=== PATIENT | male | born 1960 | race Caucasian/White ===

== ENCOUNTER → 2020-06-14 11:07 | Outpatient (CLI) | payer OTHER, SELFPAY ==
[2020-06-14] MEDS: COVID-19 VACC #1, MRNA(MOD) 100 MCG/0.5 ML VIAL IM (11:17)
== END ==
PROVIDERS: Visit Provider Internal Medicine
DX: Z23 Encounter for immunization (principal)
CPT/HCPCS: 0011A; 91301

== ENCOUNTER → 2020-07-13 10:46 | Outpatient (CLI) | payer OTHER, SELFPAY ==
[2020-07-13] MEDS: COVID-19 VACC #2, MRNA(MOD) 100 MCG/0.5 ML VIAL IM (10:53)
== END ==
PROVIDERS: Visit Provider Internal Medicine
DX: Z23 Encounter for immunization (principal)
CPT/HCPCS: 0012A; 91301

== ENCOUNTER → 2021-09-01 15:15 | Outpatient (CLI) | payer OTHER, SELFPAY ==
[2021-09-01 16:48] LABS: Appearance Urine UA CLEAR; Bilirubin Urine UA NEGATIVE (NEGATIVE); Color Urine UA YELLOW; Glucose Urine UA 1+ g/dL (Negative); Ketones Urine UA TRACE (NEGATIVE); Leukocyte Esterase Urine UA NEGATIVE (NEGATIVE); Nitrite Urine UA NEGATIVE (Negative); Occult Blood Urine UA 2+ (Negative); Protein Urine UA TRACE (Negative); Specific Gravity Urine UA 1.015 (1.000-1.035); Urobilinogen Urine UA 0.2 E.U./dL (0.2)
[2021-09-01 16:59] LABS: Bacteria Urine None Seen; Culture Indicated Urine Cult Not Indicated; RBC Urine 5-10/HPF (0-5/HPF); Squamous Epithelial Cell Urine 0-1 /HPF (0-5/HPF); WBC Urine 0-1/HPF (0-5/HPF)
== END ==
PROVIDERS: Referring Provider Urology; Visit Provider Urology
DX: N39.0 Urinary tract infection, site not specified (principal)
CPT/HCPCS: 81001

== ENCOUNTER 2021-09-01 20:07 | Inpatient (IN) | payer OTHER, SELFPAY ==
[2021-09-01] VITALS (7 sets, daily range): BP systolic 106–150; BP diastolic 73–82; PULSE 109–128; RESP 18–33; TEMP 37.3–39.8; O2SAT 95–99; BMI 25.5
[2021-09-01 20:44] LABS: Add Manual Diff / Slide Review NO; Basophils Absolute Auto 0 /uL (0-100); Basophils Percent Auto 0.3 % (0-2); Eosinophils Absolute Auto 0 /uL (0-450); Eosinophils Percent Auto 0.1 % (2-4); Hematocrit 37.5 % (41-53); Hemoglobin 12.9 g/dL (13.5-17.5); Lymphocytes Absolute Auto 700 /uL (1100-4500); Lymphocytes Percent Auto 9.2 % (25-40); Mean Corpuscular HGB Conc 34.3 % (30-36); Mean Corpuscular Hemoglobin 30.7 PG (26-34); Mean Corpuscular Volume 89.5 fL (80-100); Monocytes Absolute Auto 100 /uL (0-900); Monocytes Percent Auto 1.2 % (3-14); Neutrophils Absolute Auto 7200 /uL (1500-7000); Neutrophils Percent Auto 89.2 % (50-75); Platelet Count 157 X10^3/uL (150-400); Red Blood Cell Count 4.19 X10^6/uL (4.5-5.9); Red Cell Distribution Width 12.9 % (11.6-14.8); White Blood Cell Count 8.1 X10^3/uL (4.5-11.0)
--- NOTE | 2021-09-01 20:54 | PC.NURSE ---
Pt symptoms resolved during triage and initial assessment, pt called RN room r/t chills and body shaking, aaox3/3 and following commands, warm blanket provided.
[2021-09-01 20:57] LABS: BUN Creatinine Ratio 8.3 (6-22); Blood Urea Nitrogen 10 mg/dL (9-20); Calcium 9.4 mg/dL (8.4-10.2); Carbon Dioxide 20 mmol/L (22-32); Chloride 98 mmol/L (98-107); Estimated Glomerular Filt Rate > 60 mL/min (>60); Glucose 114 mg/dL (80-110); HEMOLYSIS < 15 (0-50); Potassium 3.7 mmol/L (3.4-5.1); Sodium 135 mmol/L (137-145)
[2021-09-01 20:58] LABS: Lactate (Lactic Acid) 3.2 mmol/L (0.7-2.1)
[2021-09-01 21:14] LABS: Procalcitonin 0.95 ng/mL (<0.5)
[2021-09-01] MEDS: SODIUM CHLORIDE 0.9% 1,000 ML 1000 ML IV (21:22)
--- NOTE | 2021-09-01 21:30 | DI.RAD.S_ITS ---
PROCEDURE: XR CHEST 1V INDICATIONS: eval for PNA TECHNIQUE: One view of the chest was acquired. COMPARISON: None. FINDINGS: Surgical changes and devices: None. Lungs and pleura: There are patchy indistinct opacities in the lung bases. No pleural effusions or pneumothorax. Mediastinum: Mediastinal contours appear normal. Heart size is normal. Bones and chest wall: No suspicious bony lesions. Overlying soft tissues appear unremarkable. IMPRESSION: 1. Patchy indistinct opacities in the lung bases suggestive of pneumonia given clinical history. Dictated by: Hermes Fox M.D. on 09/01/2021 at 23:06 Approved by: Hermes Fox M.D. on 09/01/2021 at 23:07
[2021-09-01] MEDS: ACETAMINOPHEN 325 MG TABLET 650 MG PO (21:34)
--- NOTE | 2021-09-01 21:40 | ED_ITS ---
HPI - Recheck/Abnormal Lab/Rx General Chief Complaint: Recheck/Abnormal Lab/Rx Stated Complaint: flu symptoms Time Seen by Provider: 09/01/21 20:24 Source: patient Mode of arrival: EMS Limitations: no limitations History of Present Illness HPI narrative: 61-year-old male. Underwent a transrectal prostate biopsy yesterday at [facility]. He states this is because his PSA was elevated. Today he had a fairly s udden onset of chills and shaking. He contacted the primary provider who told him to go have his urine checked for potential infection. He went to the walk- in clinic today had a urinalysis that was unremarkable. He states that his symptoms have continued which brought him into the emergency department. He denies fevers. No chest pain. No shortness of breath. No sore throat. No abdominal pain. No nausea vomiting. No urinary symptoms. No change in bowel habits. No skin rashes. Has not tried anything for symptoms prior to arrival. Related Data Home Medications Medication Instructions Recorded Confirmed amlodipine 10 mg tablet 10 mg PO DAILY 09/01/21 09/01/21 hydrochlorothiazide 12.5 mg capsule 12.5 mg PO DAILY 09/01/21 09/01/21 irbesartan 300 mg tablet 300 mg PO DAILY 09/01/21 09/01/21 omeprazole 20 mg capsule,delayed 20 mg PO PRN PRN Heartburn 09/01/21 09/01/21 release Allergies Allergy/AdvReac Type Severity Reaction Status Date / Time Penicillins [PENICILLINS] Allergy Intermediate itching Verified 09/01/21 20:56 Review of Systems Review of Systems ROS Unobtainable: All systems reviewed & are unremarkable except as noted in HPI and below Patient History Medical History Essential hypertension Social History Smoking Status: Never smoker Smoking Status: Never smoker alcohol intake frequency: 0-2 drinks per day Alcohol type: wine and hard liquor Substance Use Type: does not use Exam Initial Vital Signs Initial Vital Signs: Vital Signs Temperature 99.1 F 09/01/21 20:14 Pulse Rate 109 H 09/01/21 20:14 Respiratory Rate 18 09/01/21 20:14 Blood Pressure 150/80 H 09/01/21 20:14 Pulse Oximetry 98 06/10/22 20:14 Oxygen Delivery Method 09/01/21 20:14 Const General: cooperative, comfortable and well developed [facility] Head: normal to inspection and normocephalic Mouth: moist mucous membranes Eyes General: Yes appearance normal, both eyes and all related structures Chest Chest: normal inspection of the chest Resp Effort & Inspection: normal respiratory effort Auscultation: clear to auscultation bilaterally Cardio Rate: tachycardic Rhythm: regular rhythm GI Inspection: normal to inspection Palpation: soft, No firm and No tender Skin General: no rashes or lesions noted Neuro General: patient alert, patient awake and moves all extremities Extrem General: normal to inspection and capillary refill normal Psych Appearance: grossly normal and well kempt Scores GCS Rashaun coma scale eye opening: Spontaneous Elba coma scale verbal response: Orientated Rashaun coma scale motor response: Obey commands Rashaun coma scale total score: 15 Course Orders Ordered: ED Orders 09/01/21 20:30 Basic Metabolic Panel Stat Complete Blood Count AUTO DIFF Stat Lactate (Lactic Acid) Stat Procalcitonin Stat Respiratory Panel (Film Array) Stat 09/01/21 21:30 XR chest 1V Stat 09/01/21 21:53 Blood Culture Stat Acetaminophen (Acetaminophen 325 Mg Tablet) 975 mg PO Q8HR PRN PRN Reason: fever Last Admin: 09/01/21 22:59 Dose: 975 mg Documented By: TAMMY Al Hydrox/Mg Hydrox/Simethicone (Mag Hydrox/Alum/Simeth 30 Ml Udc) 30 ml PO Q6HR PRN PRN Reason: Dyspepsia Dextrose/Sodium Chloride (Dextrose 5%-0.9% Ns) 1,000 mls @ 125 mls/hr IV CONT FUNMI Last Admin: 09/01/21 22:58 Dose: 125 mls/hr Documented By: TAMMY Ceftriaxone Sodium 2,000 mg/ (Sodium Chloride) 100 mls @ 200 mls/hr IV Q24H [facility] Ketorolac Tromethamine (Ketorolac 30 Mg/Ml Vial) 15 mg IV Q6H PRN PRN Reason: fever Stop: 09/04/21 22:59 Morphine Sulfate (Morphine 2 Mg/Ml Inj) 2 mg IV Q4H PRN PRN Reason: Breakthrough pain only (8-10) Naloxone HCl (Naloxone 0.4 Mg/Ml Vial) 0.2 mg IV Q2MIN PRN PRN Reason: Opiate Reversal Ondansetron HCl (Ondansetron 4 Mg/2 Ml Inj) 4 mg IV Q8HR PRN PRN Reason: Nausea And Vomiting Tramadol HCl (Tramadol 50 Mg Tablet) 50 mg PO Q4H PRN PRN Reason: Pain, Moderate (4-6) Discontinued Medications Acetaminophen (Acetaminophen 325 Mg Tablet) 650 mg PO NOW ONE Stop: 09/01/21 21:31 Last Admin: 09/01/21 21:34 Dose: 650 mg Documented By: AT Sodium Chloride (Normal Saline 0.9%) 1,000 mls @ 1,000 mls/hr IV BOLUS ONE Stop: 09/01/21 22:11 Last Infusion: 09/01/21 22:45 Dose: 0 mls/hr Documented By: Admin: 09/01/21 21:22 Dose: 1,000 mls/hr Documented By: AT Ceftriaxone Sodium 1,000 mg/ (Sodium Chloride) 100 mls @ 200 mls/hr IV NOW ONE Stop: 09/01/21 21:31 Last Infusion: 09/01/21 22:45 Dose: 0 mls/hr Documented By: Admin: 09/01/21 21:54 Dose: 200 mls/hr Documented By: AT Vancomycin HCl (Vancomycin) 1,000 mg in 200 mls @ 200 mls/hr IV NOW ONE Stop: 09/01/21 22:29 Last Admin: 09/01/21 23:05 Dose: 200 mls/hr Documented By: TAMMY Vital Signs Vital signs: Vital Signs - 8 hr 09/01/21 20:14 09/01/21 20:30 09/01/21 20:51 Temperature 99.1 F Pulse Rate 109 H 110 H 126 H Respiratory Rate 18 18 33 H Blood Pressure 150/80 H 129/75 Pulse Oximetry 98 99 96 Oxygen Delivery Method Room Air Room Air Room Air 09/01/21 21:00 09/01/21 21:00 09/01/21 21:28 Temperature 101 F H Pulse Rate 128 H Respiratory Rate 29 H Blood Pressure 144/82 H Pulse Oximetry 97 Oxygen Delivery Method Room Air MDM - Recheck/Abnormal Lab/Rx Lab Data Attestation: I reviewed the patient's lab results. Result diagrams: 09/01/21 20:30 09/01/21 20:30 Labs: Lab Results 09/01/21 09/01/21 09/01/21 Range/Units 20:30 20:30 20:30 WBC 8.1 (4.5-11.0) X10^3/uL RBC 4.19 L (4.5-5.9) X10^6/uL Hgb 12.9 L (13.5-17.5) g/dL Hct 37.5 L (41-53) % MCV 89.5 (80-100) fL MCH 30.7 (26-34) PG MCHC 34.3 (30-36) % RDW 12.9 (11.6-14.8) % Plt Count 157 (150-400) X10^3/uL Neut % (Auto) 89.2 H (50-75) % Lymph % (Auto) 9.2 L (25-40) % [place] % (Auto) 1.2 L (3-14) % Eos % (Auto) 0.1 L (2-4) % Baso % (Auto) 0.3 (0-2) % Neut # (Auto) 7200 H (8878-1800) /uL Lymph # (Auto) 700 L (2714-6121) /uL [place] # (Auto) 100 (0-900) /uL Eos # (Auto) 0 (0-450) /uL Baso # (Auto) 0 (0-100) /uL Sodium 135 L (137-145) mmol/L Potassium 3.7 (3.4-5.1) mmol/L Chloride 98 (98-107) mmol/L Carbon Dioxide 20 L (22-32) mmol/L BUN 10 (9-20) mg/dL Creatinine 1.21 (0.66-1.25) mg/dL Estimated GFR > 60 (>60) mL/min BUN/Creatinine Ratio 8.3 (6-22) Glucose 114 H (80-110) mg/dL Lactate 3.2 H (0.7-2.1) mmol/L Calcium 9.4 (8.4-10.2) mg/dL Procalcitonin 0.95 H (<0.5) ng/mL Chlamy pneumoniae PCR (Not Detect) Adenovirus (PCR) (Not Detect) B. pertussis DNA (PCR) (Not Detecte) B.parapertussis DNA PCR (Not Detecte) Coronavirus OC43 (PCR) (Not Detect) Coronavirus HKU1 (PCR) (Not Detect) Coronavirus 229E (PCR) (Not Detect) SARS-CoV-2 (PCR) (Not Detecte) Coronavirus NL63 (PCR) (Not Detect) Human Metapneumovir PCR (Not Detect) Influenza Type A (PCR) (Not Detect) Influenza Type B (PCR) (Not Detect) M. pneumoniae (PCR) (Not Detect) Parainfluenza 1 (PCR) (Not Detect) Parainfluenza 2 (PCR) (Not Detect) Parainfluenza 3 (PCR) (Not Detect) Parainfluenza 4 (PCR) (Not Detect) RSV (PCR) (Not Detect) Entero/Rhino (PCR) (Not Detect) 09/01/21 Range/Units 20:30 WBC (4.5-11.0) X10^3/uL RBC (4.5-5.9) X10^6/uL Hgb (13.5-17.5) g/dL Hct (41-53) % MCV (80-100) fL MCH (26-34) PG MCHC (30-36) % RDW (11.6-14.8) % Plt Count (150-400) X10^3/uL Neut % (Auto) (50-75) % Lymph % (Auto) (25-40) % [place] % (Auto) (3-14) % Eos % (Auto) (2-4) % Baso % (Auto) (0-2) % Neut # (Auto) (1367-0707) /uL Lymph # (Auto) (8407-4909) /uL [place] # (Auto) (0-900) /uL Eos # (Auto) (0-450) /uL Baso # (Auto) (0-100) /uL Sodium (137-145) mmol/L Potassium (3.4-5.1) mmol/L Chloride (98-107) mmol/L Carbon Dioxide (22-32) mmol/L BUN (9-20) mg/dL Creatinine (0.66-1.25) mg/dL Estimated GFR (>60) mL/min BUN/Creatinine Ratio (6-22) Glucose (80-110) mg/dL Lactate (0.7-2.1) mmol/L Calcium (8.4-10.2) mg/dL Procalcitonin (<0.5) ng/mL Chlamy pneumoniae PCR Not detected (Not Detect) Adenovirus (PCR) Not detected (Not Detect) B. pertussis DNA (PCR) Not detected (Not Detecte) B.parapertussis DNA PCR Not detected (Not Detecte) Coronavirus OC43 (PCR) Not detected (Not Detect) Coronavirus HKU1 (PCR) Not detected (Not Detect) Coronavirus 229E (PCR) Not detected (Not Detect) SARS-CoV-2 (PCR) Not detected (Not Detecte) Coronavirus NL63 (PCR) Not detected (Not Detect) Human Metapneumovir PCR Not detected (Not Detect) Influenza Type A (PCR) Not detected (Not Detect) Influenza Type B (PCR) Not detected (Not Detect) M. pneumoniae (PCR) Not detected (Not Detect) Parainfluenza 1 (PCR) Not detected (Not Detect) Parainfluenza 2 (PCR) Not detected (Not Detect) Parainfluenza 3 (PCR) Not detected (Not Detect) Parainfluenza 4 (PCR) Not detected (Not Detect) RSV (PCR) Not detected (Not Detect) Entero/Rhino (PCR) Not detected (Not Detect) Imaging Data Chest x-ray: Radiologist's Impression: [address] [address] XRay Report Signed Patient: Tera Escobedo MR#: [id number] : 1960 Acct:[id number] Age/Sex: 61 / M Date of Service: 09/01/21 Loc: 216-1 Accession Number: [id number] ?? Procedure: XR chest 1V Ordering Provider: Bar Husain D.O. PROCEDURE:? XR CHEST 1V ? INDICATIONS:? eval for PNA ? TECHNIQUE:? One view of the chest was acquired.? ? COMPARISON:? None. ? FINDINGS:? ? Surgical changes and devices:? None.? ? Lungs and pleura:? There are patchy indistinct opacities in the lung bases.? No pleural effusions or pneumothorax.? ? Mediastinum:? Mediastinal contours appear normal.? Heart size is normal.? ? Bones and chest wall:? No suspicious bony lesions.? Overlying soft tissues appear unremarkable.? ? IMPRESSION:? ? 1. Patchy indistinct opacities in the lung bases suggestive of pneumonia given clinical history. ? ? Dictated by: Hermes Fox M.D. on 09/01/2021 at 23:06 ? ? Approved by: Hermes Fox M.D. on 09/01/2021 at 23:07?? [facility] Narrative Medical decision making narrative: Patient is well-appearing. His only complaint is that he is very cold. Initially was afebrile. He did develop a fever upon arrival. Has a normal white blood cell count. His lactate was elevated. Procalcitonin was elevated. His tachycardia worsened and he did become febrile. This is when antibiotics were started. 30 cc/kilogram was not administered secondary to his lack of hypotension and no change in mental status and moist mucous membranes. Low suspicion for pneumonia despite the chest x-ray findings. A urine culture was ordered on the urine that was provided earlier today at the walk-in clinic. Blood cultures were obtained. Antibiotics administered. I suspect that his symptoms are a bacteremia related to his procedure yesterday. Patient does require admission to the hospital for further evaluation and treatment. Did discuss this with the patient who expressed understanding and agreement. Discussed case with hospitalist to will admit for further evaluation treatment. Discharge Plan Departure Patient Disposition: Admitted As Inpatient Clinical Impression: Rigors, Fever of unknown origin Admit Date/Time: 09/01/21 22:11 Admit Provider: Rashida Alex
[2021-09-01 21:46] LABS: Adenovirus Not Detected (Not Detect); B. parapertussis Not Detected (Not Detecte); Bordetella pertussis Not Detected (Not Detecte); Chlamydophila pneumoniae Not Detected (Not Detect); Coronavirus 229E Not Detected (Not Detect); Coronavirus HKU1 Not Detected (Not Detect); Coronavirus NL 63 Not Detected (Not Detect); Coronavirus OC43 Not Detected (Not Detect); Human Metapneumovirus Not Detected (Not Detect); Human Rhinovirus/Enterovirus Not Detected (Not Detect); Influenza A Not Detected (Not Detect); Influenza B Not Detected (Not Detect); Mycoplasma pneumoniae Not Detected (Not Detect); Parainfluenza Virus 1 Not Detected (Not Detect); Parainfluenza Virus 2 Not Detected (Not Detect); Parainfluenza Virus 3 Not Detected (Not Detect); Parainfluenza Virus 4 Not Detected (Not Detect); Respiratory Syncytial Virus Not Detected (Not Detect); SARS- CoV-2 Not Detected (Not Detecte)
[2021-09-01] MEDS: cefTRIAXone 1,000 MG in SODIUM CHLORIDE 0.9% 100 ML 200 MG IV (21:54)
[2021-09-01 22:41] LABS: Reflexed Lactate in 2 Hours Y
[2021-09-01] MEDS: DEXTROSE 5%-0.9% NS 1,000 ML 125 ML IV (22:58)
[2021-09-01] MEDS: ACETAMINOPHEN 325 MG TABLET 975 MG PO (22:59)
--- NOTE | 2021-09-01 22:59 | P.HP_ITS ---
History of Present Illness History of Present Illness Date Patient Seen: 09/01/21 Date of Onset of Symptoms: 09/01/21 Chief complaint: flu symptoms Narrative: 61 year old male no significant past medical history had a prostate biopsy yesterday for further evaluation of elevated PSA, started having chills starting this afternoon, home COVID test negative, continues to feel worse comes to ER for further evaluation. When I saw the patient in the ER he continues to have chills and rigors and also fevers. Sepsis protocol was initiated in the ER, was given IV fluids, IV antibiotics. Other than feeling chills and now active fevers in the ER, patient denies any other specific symptoms at this time. Patient also feels mildly nauseous, and mild head discomfort. Denies any neck pain, no other musculoskeletal pain. Patient denies any urinary symptoms. No suprapubic pain. No abdominal discomfort. Patient denies any palpitations, chest pain. No sick contacts, no cough no cold, no runny nose. Patient History Medical History Essential hypertension Family & Social History Social History: Patient was adopted, no relevant family history. He lives with his . 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 Safety & Behavioral: Feels Safe in Current Yes Environment Been Physically Hurt or No Threatened By a Person Tobacco & Substance use: Smoking Status Never smoker alcohol intake frequency 0-2 drinks per day Substance Use Type does not use Meds Home Medications and Allergies Home Medications Medication Instructions Recorded Confirmed Type amlodipine 10 mg tablet 10 mg PO DAILY 09/01/21 09/01/21 History hydrochlorothiazide 12.5 mg capsule 12.5 mg PO DAILY 09/01/21 09/01/21 History irbesartan 300 mg tablet 300 mg PO DAILY 09/01/21 09/01/21 History omeprazole 20 mg capsule,delayed 20 mg PO PRN PRN Heartburn 09/01/21 09/01/21 History release Allergies Allergy/AdvReac Type Severity Reaction Status Date / Time Penicillins [PENICILLINS] Allergy Intermediate itching Verified 09/01/21 20:56 Review of Systems Review of Systems Narrative: Positive for chills, rigors. Constitutional, eyes, ENT, cardiovascular, respiratory, musculoskeletal, GI, , neurologic, psychiatric, review of systems performed, negative other than as mentioned in HPI. Exam Vital Signs (past 8 hours): - 09/01/21 20:14 09/01/21 20:30 09/01/21 20:51 Temperature 99.1 F Pulse Rate 109 H 110 H 126 H Respiratory Rate 18 18 33 H Blood Pressure 150/80 H 129/75 Pulse Oximetry 98 99 96 Oxygen Delivery Method Room Air Room Air Room Air 09/01/21 21:00 09/01/21 21:00 09/01/21 21:28 Temperature 101 F H Pulse Rate 128 H Respiratory Rate 29 H Blood Pressure 144/82 H Pulse Oximetry 97 Oxygen Delivery Method Room Air 09/01/21 22:30 Temperature 101 F H Pulse Rate Respiratory Rate Blood Pressure Pulse Oximetry Oxygen Delivery Method Oxygen Delivery Method Room Air Narrative Exam Narrative: Patient seems to be mildly uncomfortable because of the chills, covered with blankets. He does seem to be in mild distress, feels warm on touch. Tachyca rdic. Capillary refills within normal limits. Peripheral pulses felt okay. No apparent signs of dehydration at this time. No orthostatic hypotension. Constitutional, eyes, ENT, cardiovascular, respiratory, GI, skin, neuro, psychiatric examination performed, negative other than as mentioned above. Objective Labs Result Diagrams: 09/01/21 20:30 09/01/21 20:30 Labs: Laboratory Results - last 24 hr 09/01/21 09/01/21 09/01/21 20:30 20:30 20:30 WBC 8.1 RBC 4.19 L Hgb 12.9 L Hct 37.5 L MCV 89.5 MCH 30.7 MCHC 34.3 RDW 12.9 Plt Count 157 Neut % (Auto) 89.2 H Lymph % (Auto) 9.2 L Richardson % (Auto) 1.2 L Eos % (Auto) 0.1 L Baso % (Auto) 0.3 Neut # (Auto) 7200 H Lymph # (Auto) 700 L Richardson # (Auto) 100 Eos # (Auto) 0 Baso # (Auto) 0 Sodium 135 L Potassium 3.7 Chloride 98 Carbon Dioxide 20 L BUN 10 Creatinine 1.21 Estimated GFR > 60 BUN/Creatinine Ratio 8.3 Glucose 114 H Lactate 3.2 H Calcium 9.4 Procalcitonin 0.95 H Chlamy pneumoniae PCR Adenovirus (PCR) B. pertussis DNA (PCR) B.parapertussis DNA PCR Coronavirus OC43 (PCR) Coronavirus HKU1 (PCR) Coronavirus 229E (PCR) SARS-CoV-2 (PCR) Coronavirus NL63 (PCR) Human Metapneumovir PCR Influenza Type A (PCR) Influenza Type B (PCR) M. pneumoniae (PCR) Parainfluenza 1 (PCR) Parainfluenza 2 (PCR) Parainfluenza 3 (PCR) Parainfluenza 4 (PCR) RSV (PCR) Entero/Rhino (PCR) 09/01/21 20:30 WBC RBC Hgb Hct MCV MCH MCHC RDW Plt Count Neut % (Auto) Lymph % (Auto) Richardson % (Auto) Eos % (Auto) Baso % (Auto) Neut # (Auto) Lymph # (Auto) Richardson # (Auto) Eos # (Auto) Baso # (Auto) Sodium Potassium Chloride Carbon Dioxide BUN Creatinine Estimated GFR BUN/Creatinine Ratio Glucose Lactate Calcium Procalcitonin Chlamy pneumoniae PCR Not detected Adenovirus (PCR) Not detected B. pertussis DNA (PCR) Not detected B.parapertussis DNA PCR Not detected Coronavirus OC43 (PCR) Not detected Coronavirus HKU1 (PCR) Not detected Coronavirus 229E (PCR) Not detected SARS-CoV-2 (PCR) Not detected Coronavirus NL63 (PCR) Not detected Human Metapneumovir PCR Not detected Influenza Type A (PCR) Not detected Influenza Type B (PCR) Not detected M. pneumoniae (PCR) Not detected Parainfluenza 1 (PCR) Not detected Parainfluenza 2 (PCR) Not detected Parainfluenza 3 (PCR) Not detected Parainfluenza 4 (PCR) Not detected RSV (PCR) Not detected Entero/Rhino (PCR) Not detected Assessment & Plan Assessment and plan (1) Sepsis: Status: Acute (2) Status post biopsy: Status: Acute (3) Hypotension: Status: Acute (4) Rigors: Status: Acute Plan Admit patient as an inpatient, expected length of stay greater than 2 days IV fluids, 2 L bolus given in the ER, IV antibiotics Rocephin, vancomycin, continue Rocephin during hospitalization pending culture Urine at outside urgent care sent for cultures, pending, follow-up on those cultures for further titration of antibiotics Close monitoring recommended, aggressive IV fluid resuscitation, telemetry monitoring Blood pressure seems to be related to stable at this time I suspect Gram-negative bacteremia in this scenario probably causing sepsis DVT, GI prophylaxis reviewed Patient is full code, care plan extensively discussed I offered to talk to , patient requested not to call her late night. Time Spent With Patient Critical Care time: I spent a total of [] minutes of critical care time on this patient's care today; this time is exclusive of procedural time.
[2021-09-01] MEDS: VANCOMYCIN 1,000 MG/200 ML PIGGYBACK 200 MG IV (23:05)
[2021-09-01 23:15] LABS: Lactate 2HR (Lactic Acid Rflx) 1.6 mmol/L (0.7-2.1)
[2021-09-02 02:47] VITALS: BP 105/62; PULSE 94; RESP 17; TEMP 37.3; O2SAT 95
[2021-09-02] MEDS: SODIUM CHLORIDE 0.9% 1,000 ML 1000 ML IV (03:56)
[2021-09-02 06:00] VITALS: BP 121/72; PULSE 89; RESP 16; TEMP 37.2; O2SAT 98
[2021-09-02 06:16] LABS: Add Manual Diff / Slide Review NO; Basophils Absolute Auto 0 /uL (0-100); Basophils Percent Auto 0.3 % (0-2); Eosinophils Absolute Auto 0 /uL (0-450); Eosinophils Percent Auto 0.1 % (2-4); Hematocrit 32.2 % (41-53); Hemoglobin 11.2 g/dL (13.5-17.5); Lymphocytes Absolute Auto 1000 /uL (1100-4500); Lymphocytes Percent Auto 9.6 % (25-40); Mean Corpuscular HGB Conc 34.8 % (30-36); Mean Corpuscular Hemoglobin 31.3 PG (26-34); Mean Corpuscular Volume 89.9 fL (80-100); Monocytes Absolute Auto 700 /uL (0-900); Monocytes Percent Auto 7.2 % (3-14); Neutrophils Absolute Auto 8400 /uL (1500-7000); Neutrophils Percent Auto 82.8 % (50-75); Platelet Count 147 X10^3/uL (150-400); Red Blood Cell Count 3.58 X10^6/uL (4.5-5.9); Red Cell Distribution Width 13.1 % (11.6-14.8); White Blood Cell Count 10.2 X10^3/uL (4.5-11.0)
[2021-09-02] MEDS: PANTOPRAZOLE DR 40 MG TABLET PO (06:18)
[2021-09-02 06:26] LABS: Alanine Aminotransferase 21 IU/L (<50); Albumin 3.6 g/dL (3.5-5.0); Albumin Globulin Ratio 1.6 (1.0-2.8); Alkaline Phosphatase 50 U/L (38-126); Aspartate Aminotransferase 29 IU/L (17-59); BUN Creatinine Ratio 7.9 (6-22); Bilirubin Total 0.6 mg/dL (0.2-1.3); Blood Urea Nitrogen 10 mg/dL (9-20); Calcium 8.5 mg/dL (8.4-10.2); Carbon Dioxide 24 mmol/L (22-32); Chloride 107 mmol/L (98-107); Estimated Glomerular Filt Rate > 60 mL/min (>60); Globulin 2.3 g/dL (1.7-4.1); Glucose 140 mg/dL (80-110); HEMOLYSIS < 15 (0-50); Potassium 3.9 mmol/L (3.4-5.1); Sodium 135 mmol/L (137-145); Total Protein 5.9 g/dL (6.3-8.2)
[2021-09-02] MEDS: DEXTROSE 5%-0.9% NS 1,000 ML 125 ML IV ×2 (08:38→17:25)
[2021-09-02 08:43] VITALS: BP 131/79; PULSE 93; RESP 16; TEMP 36.6; O2SAT 96
--- NOTE | 2021-09-02 08:47 | PC.NURSE ---
Addendum entered by Shey Sol R.N. 09/02/21 18:59: Patient given tylenol earlier and is comfortable in bed, appetite has been good. He is resting now. Addendum entered by Shey Sol R.N. 09/02/21 12:52: notified of patients 1 bottle of 2 and first set of blood cultures grew out ecoli. She was also notified that one bottle of the second set of blood cultures grew gram negative bacilli. Original Note: Patient is eating breakfast without any nausea, he seems to be feeling better. IVF infusing and patient has an iv antibiotic at 1200. Voices no needs at this time and is comfortable.
[2021-09-02] MEDS: ACETAMINOPHEN 325 MG TABLET 975 MG PO ×2 (10:10→17:25)
[2021-09-02 12:06] LABS: Acinetobacter baumannii Not Detected (Not Detect); Enterococcus species Not Detected (Not Detect); KPC (carbapenem-resist gene) Not Detected (Not Detect); Listeria monocytogenes Not Detected (Not Detect); Staphylococcus species Not Detected (Not Detect); Streptococcus agalactiae (Gr B Not Detected (Not Detect); Streptococcus pneumonia Not Detected (Not Detect); Streptococcus pyogenes (Gr A) Not Detected (Not Detect); Streptococcus species Not Detected (Not Detect)
[2021-09-02 12:07] LABS: Candida albicans Not Detected (Not Detect); Candida glabrata Not Detected (Not Detect); Candida krusei Not Detected (Not Detect); Candida parapsilosis Not Detected (Not Detect); Candida tropicalis Not Detected (Not Detect); E. coli Detected (Not Detect); Enterobacter cloacae complex Not Detected (Not Detect); Enterobacteriaceae species Detected (Not Detect); Haemophilus influenzae Not Detected (Not Detect); Neisseria meningitidis Not Detected (Not Detect); Proteus species Not Detected (Not Detect); Pseudomonas aeruginosa Not Detected (Not Detect); Serratia marcescens Not Detected (Not Detect)
[2021-09-02 12:13] VITALS: BP 127/79; PULSE 92; RESP 16; TEMP 36.8; O2SAT 97
[2021-09-02] MEDS: KETOROLAC 30 MG/ML VIAL 15 MG IV (13:08)
[2021-09-02] MEDS: CIPROFLOXACIN 400 MG/200 ML PIGGYBACK 200 MG IV (13:08)
--- NOTE | 2021-09-02 14:29 | CM.DANOTE ---
Initial Discharge Planning Assessment Case received, EMR reviewed and met with patient. Introduced self and role. 61 year old male admitted yesterday evening to care of hospitalist team. PCP: Sly Krikpatrick Payer: [employer], self pay. Alert and oriented patient was admitted 09/01/21 with sudden onset fever and chills. He apparently underwent a transrectal prostate biopsy on 08/31/21 at [facility]. He has positive blood cultures and is on IV antibiotics. Met with patient in his room, patient in bed. He states he lives at home in [place] with his Hilary. He is independent at baseline. P: Once medically stable, patient wishes to return home to care of . If he is to be on correction IV antibiotics at home, Care Management will work on referral to a home infusion company. DCP to continue to follow. Discharge Planning/Care Management CM Discharge Assessment Start: 09/02/21 14:25 Freq: Status: Active Protocol: Document 09/02/21 14:25 (Rec: 09/02/21 14:28 [id number]) Discharge Planning Assessment Assigned Card Placer Jasmyne Craft RN/DCP Advance Directives? No History Provided By Patient Prior Living Arrangements House Household Members spouse Type of transporation used prior to Drives own vehicle admit Independent with ADL's Yes Is patient alert and oriented? Yes Caregiver for Another No Comment Possible IV therapy if on rn long term care IV antibiotics. Barriers to Discharge No Discharge Plan Home Additional Comment possible IV therapy company if is to be on rn long term care home IV antibiotics. Whiteboard Updated in Patient Room with Yes name and ext. # of Card Placer Review Status In Process Next Review Type Continued Stay Review
--- NOTE | 2021-09-02 15:52 | PM.PN.1 ---
Subjective Subjective Date Patient Seen: 09/02/21 Interval history: 61-year-old male status post prostate biopsy admitted to the hospital fever, shaking chills. Blood cultures are growing Gram-negative bacilli, and E coli. Patient has defervesced nicely, he was febrile to 103 yesterday. He does report he still feels like he has ?the flu. No nausea no vomiting or diarrhea. He has no dysuria or hematuria. Exam Vital Signs (past 8 hours): - 09/02/21 08:43 09/02/21 12:13 Temperature 97.9 F 98.3 F Pulse Rate 93 H 92 H Respiratory Rate 16 16 Blood Pressure 131/79 127/79 Pulse Oximetry 96 97 Oxygen Flow Rate 0 0 Oxygen Delivery Method Room Air Oxygen Flow Rate 0 Narrative Exam Narrative: Pleasant male lying in bed Resp Other: Lungs clear to auscultation Cardio Other: Cardiac exam: Regular rate and rhythm normal S1-S2 GI Other: Abdomen: Soft nontender nondistended Extrem Other: Extremities: No edema Objective Labs Result Diagrams: 09/02/21 05:55 09/02/21 05:55 Labs: Laboratory Results - last 24 hr 09/01/21 09/01/21 09/01/21 20:30 20:30 20:30 WBC 8.1 RBC 4.19 L Hgb 12.9 L Hct 37.5 L MCV 89.5 MCH 30.7 MCHC 34.3 RDW 12.9 Plt Count 157 Neut % (Auto) 89.2 H Lymph % (Auto) 9.2 L [place] % (Auto) 1.2 L Eos % (Auto) 0.1 L Baso % (Auto) 0.3 Neut # (Auto) 7200 H Lymph # (Auto) 700 L [place] # (Auto) 100 Eos # (Auto) 0 Baso # (Auto) 0 Sodium 135 L Potassium 3.7 Chloride 98 Carbon Dioxide 20 L BUN 10 Creatinine 1.21 Estimated GFR > 60 BUN/Creatinine Ratio 8.3 Glucose 114 H Lactate 3.2 H Calcium 9.4 Total Bilirubin AST ALT Alkaline Phosphatase Total Protein Albumin Globulin Albumin/Globulin Ratio Procalcitonin 0.95 H A. baumannii (PCR) Chlamy pneumoniae PCR Adenovirus (PCR) B. pertussis DNA (PCR) B.parapertussis DNA PCR Delmis albicans (PCR) C. glabrata (PCR) C. krusei (PCR) C. parapsilosis (PCR) C. tropicalis (PCR) Coronavirus OC43 (PCR) Coronavirus HKU1 (PCR) Coronavirus 229E (PCR) SARS-CoV-2 (PCR) Coronavirus NL63 (PCR) Enterobacteriac sp PCR E. cloacae complex PCR Enterococcus sp PCR E. coli (PCR) H. influenzae (PCR) Human Metapneumovir PCR Influenza Type A (PCR) Influenza Type B (PCR) Klebsiella oxytoca PCR Klebsiella pneumoniae List. monocytogenes PCR M. pneumoniae (PCR) N. meningitidis (PCR) Parainfluenza 1 (PCR) Parainfluenza 2 (PCR) Parainfluenza 3 (PCR) Parainfluenza 4 (PCR) Proteus species (PCR) RSV (PCR) Entero/Rhino (PCR) Serratia marcescens PCR Staphylococcus sp PCR Staph aureus (PCR) mecA-Methicil Res Gene Streptococcus sp PCR Group A Strep (PCR) Strep agalactiae (PCR) Strep pneumoniae (PCR) P. aeruginosa (PCR) Berta/B-Vanco Res Genes KPC-Carbap Res Gene PCR 09/01/21 09/01/21 09/01/21 20:30 21:53 22:55 WBC RBC Hgb Hct MCV MCH MCHC RDW Plt Count Neut % (Auto) Lymph % (Auto) [place] % (Auto) Eos % (Auto) Baso % (Auto) Neut # (Auto) Lymph # (Auto) [place] # (Auto) Eos # (Auto) Baso # (Auto) Sodium Potassium Chloride Carbon Dioxide BUN Creatinine Estimated GFR BUN/Creatinine Ratio Glucose Lactate 1.6 Calcium Total Bilirubin AST ALT Alkaline Phosphatase Total Protein Albumin Globulin Albumin/Globulin Ratio Procalcitonin A. baumannii (PCR) Not detected Chlamy pneumoniae PCR Not detected Adenovirus (PCR) Not detected B. pertussis DNA (PCR) Not detected B.parapertussis DNA PCR Not detected Delmis albicans (PCR) Not detected C. glabrata (PCR) Not detected C. krusei (PCR) Not detected C. parapsilosis (PCR) Not detected C. tropicalis (PCR) Not detected Coronavirus OC43 (PCR) Not detected Coronavirus HKU1 (PCR) Not detected Coronavirus 229E (PCR) Not detected SARS-CoV-2 (PCR) Not detected Coronavirus NL63 (PCR) Not detected Enterobacteriac sp PCR Detected H E. cloacae complex PCR Not detected Enterococcus sp PCR Not detected E. coli (PCR) Detected H H. influenzae (PCR) Not detected Human Metapneumovir PCR Not detected Influenza Type A (PCR) Not detected Influenza Type B (PCR) Not detected Klebsiella oxytoca PCR Not detected Klebsiella pneumoniae Not detected List. monocytogenes PCR Not detected M. pneumoniae (PCR) Not detected N. meningitidis (PCR) Not detected Parainfluenza 1 (PCR) Not detected Parainfluenza 2 (PCR) Not detected Parainfluenza 3 (PCR) Not detected Parainfluenza 4 (PCR) Not detected Proteus species (PCR) Not detected RSV (PCR) Not detected Entero/Rhino (PCR) Not detected Serratia marcescens PCR Not detected Staphylococcus sp PCR Not detected Staph aureus (PCR) Not detected mecA-Methicil Res Gene Not Reportable Streptococcus sp PCR Not detected Group A Strep (PCR) Not detected Strep agalactiae (PCR) Not detected Strep pneumoniae (PCR) Not detected P. aeruginosa (PCR) Not detected Berta/B-Vanco Res Genes Not Reportable KPC-Carbap Res Gene PCR Not detected 09/02/21 09/02/21 05:55 05:55 WBC 10.2 RBC 3.58 L Hgb 11.2 L Hct 32.2 L MCV 89.9 MCH 31.3 MCHC 34.8 RDW 13.1 Plt Count 147 L Neut % (Auto) 82.8 H Lymph % (Auto) 9.6 L [place] % (Auto) 7.2 Eos % (Auto) 0.1 L Baso % (Auto) 0.3 Neut # (Auto) 8400 H Lymph # (Auto) 1000 L [place] # (Auto) 700 Eos # (Auto) 0 Baso # (Auto) 0 Sodium 135 L Potassium 3.9 Chloride 107 Carbon Dioxide 24 BUN 10 Creatinine 1.26 H Estimated GFR > 60 BUN/Creatinine Ratio 7.9 Glucose 140 H Lactate Calcium 8.5 Total Bilirubin 0.6 AST 29 ALT 21 Alkaline Phosphatase 50 Total Protein 5.9 L Albumin 3.6 Globulin 2.3 Albumin/Globulin Ratio 1.6 Procalcitonin A. baumannii (PCR) Chlamy pneumoniae PCR Adenovirus (PCR) B. pertussis DNA (PCR) B.parapertussis DNA PCR Delmis albicans (PCR) C. glabrata (PCR) C. krusei (PCR) C. parapsilosis (PCR) C. tropicalis (PCR) Coronavirus OC43 (PCR) Coronavirus HKU1 (PCR) Coronavirus 229E (PCR) SARS-CoV-2 (PCR) Coronavirus NL63 (PCR) Enterobacteriac sp PCR E. cloacae complex PCR Enterococcus sp PCR E. coli (PCR) H. influenzae (PCR) Human Metapneumovir PCR Influenza Type A (PCR) Influenza Type B (PCR) Klebsiella oxytoca PCR Klebsiella pneumoniae List. monocytogenes PCR M. pneumoniae (PCR) N. meningitidis (PCR) Parainfluenza 1 (PCR) Parainfluenza 2 (PCR) Parainfluenza 3 (PCR) Parainfluenza 4 (PCR) Proteus species (PCR) RSV (PCR) Entero/Rhino (PCR) Serratia marcescens PCR Staphylococcus sp PCR Staph aureus (PCR) mecA-Methicil Res Gene Streptococcus sp PCR Group A Strep (PCR) Strep agalactiae (PCR) Strep pneumoniae (PCR) P. aeruginosa (PCR) Berta/B-Vanco Res Genes KPC-Carbap Res Gene PCR PFSH Medical History Essential hypertension Social History household members: spouse Smoking Status: Never smoker Assessment & Plan Assessment & Plan narrative: 1. Severe sepsis secondary to E coli bacteremia likely related to recent prostate biopsy -patient with fever, SILVER, rigors, and initial hypotension, blood pressure 50 points down from baseline of 150. -amlodipine, hydrochlorothiazide, irbesartan have been held -blood pressure stable off his usual blood pressure medication -will continue IV hydration, IV antibiotics, ceftriaxone d/c dipro -will await culture and sensitivities -repeat procalcitonin in am 2. Probable SILVER -likely secondary to septic shock -d/c tordol -avoid nephrotoxic agents 3. Hypertension -hold antihypertensives for now -once blood pressure normalizes or becomes elevated can resume 4. GERD -continue PPI Time Spent With Patient Critical Care time: I spent a total of [] minutes of critical care time on this patient's care today; this time is exclusive of procedural time.
[2021-09-02 16:00] VITALS: BP 124/74; PULSE 98; RESP 16; TEMP 36.8; O2SAT 100
[2021-09-02 16:01] LABS: Procalcitonin 5.96 ng/mL (<0.5)
[2021-09-02 20:00] VITALS: BP 132/82; PULSE 95; RESP 18; TEMP 37.6; O2SAT 98
[2021-09-02] MEDS: cefTRIAXone 2,000 MG in SODIUM CHLORIDE 0.9% 100 ML 200 MG IV (20:44)
[2021-09-03] VITALS: BP 141/81; PULSE 98; RESP 18; TEMP 36.8; O2SAT 98
[2021-09-03] MEDS: DEXTROSE 5%-0.9% NS 1,000 ML 125 ML IV (03:13)
[2021-09-03 04:00] VITALS: BP 145/83; PULSE 107; RESP 18; TEMP 37.8; O2SAT 98
[2021-09-03 04:57] LABS: Add Manual Diff / Slide Review NO; Basophils Absolute Auto 0 /uL (0-100); Basophils Percent Auto 0.5 % (0-2); Eosinophils Absolute Auto 100 /uL (0-450); Eosinophils Percent Auto 1.3 % (2-4); Hemoglobin 11.4 g/dL (13.5-17.5); Lymphocytes Absolute Auto 700 /uL (1100-4500); Lymphocytes Percent Auto 8.5 % (25-40); Mean Corpuscular HGB Conc 34.4 % (30-36); Mean Corpuscular Hemoglobin 31.1 PG (26-34); Mean Corpuscular Volume 90.5 fL (80-100); Monocytes Absolute Auto 700 /uL (0-900); Monocytes Percent Auto 8.4 % (3-14); Neutrophils Absolute Auto 6400 /uL (1500-7000); Neutrophils Percent Auto 81.3 % (50-75); Platelet Count 134 X10^3/uL (150-400); Red Blood Cell Count 3.65 X10^6/uL (4.5-5.9); Red Cell Distribution Width 13.4 % (11.6-14.8); White Blood Cell Count 7.9 X10^3/uL (4.5-11.0)
[2021-09-03 05:04] VITALS: TEMP 38.1
[2021-09-03] MEDS: ACETAMINOPHEN 325 MG TABLET 975 MG PO (05:04)
[2021-09-03 05:08] LABS: Blood Urea Nitrogen 8 mg/dL (9-20); Calcium 8.8 mg/dL (8.4-10.2); Carbon Dioxide 25 mmol/L (22-32); Chloride 106 mmol/L (98-107); Estimated Glomerular Filt Rate > 60 mL/min (>60); Glucose 151 mg/dL (80-110); HEMOLYSIS < 15 (0-50); Potassium 3.6 mmol/L (3.4-5.1); Sodium 136 mmol/L (137-145)
[2021-09-03 05:32] LABS: Procalcitonin 4.29 ng/mL (<0.5)
[2021-09-03] MEDS: PANTOPRAZOLE DR 40 MG TABLET PO (06:24)
[2021-09-03 08:00] VITALS: BP 127/75; PULSE 91; RESP 18; TEMP 36.3; O2SAT 95
--- NOTE | 2021-09-03 12:08 | PM.DS.1 ---
History of Present Illness History of Present Illness Date Patient Seen: 09/03/21 Date of Onset of Symptoms: 09/01/21 Chief complaint: flu symptoms Narrative: Per Dr. Alex 61 year old male no significant past medical history had a prostate biopsy yesterday for further evaluation of elevated PSA, started having chills starting this afternoon, home COVID test negative, continues to feel worse comes to ER for further evaluation. When I saw the patient in the ER he continues to have chills and rigors and also fevers. Sepsis protocol was initiated in the ER, was given IV fluids, IV antibiotics. Other than feeling chills and now active fevers in the ER, patient denies any other specific symptoms at this time. Patient also feels mildly nauseous, and mild head discomfort. Denies any neck pain, no other musculoskeletal pain. Patient denies any urinary symptoms. No suprapubic pain. No abdominal discomfort. Patient denies any palpitations, chest pain. No sick contacts, no cough no cold, no runny nose. Discharge Providers Provider Date of admission: 09/01/21 22:11 Discharge Date: 09/03/21 Primary care physician: Doctor Caitlin MD Discharge provider: Ren Monroe DO Summary Hospital Course Discharge Diagnosis: 1. E coli bacteremia likely related to recent prostate biopsy 2. Elevated creatinine, improved 3. Hypertension, chronic 4. GERD 5. Sepsis ruled out Hospital Course: This is a 61-year-old male who recently underwent prostate biopsy who presented with fevers, chills, and rigors. He was initially mildly hypotensive, though his map was greater than 70 and had a mildly elevated creatinine at 1.2. He improved with antibiotic therapy including ceftriaxone and vancomycin which was discontinued once cultures started to grow E coli in his blood stream. He was continued on ceftriaxone until discharge, and given clinical improvement on this therapy he will be discharged on home cefdinir for another 10 days given his bacteremia. His home blood pressure medications were initially held but these can be resumed at the time of discharge is his blood pressure did start to rise. On the day of discharge the patient was feeling well without any symptoms, had been afebrile, and was tolerating a diet. Recommend follow-up with his urologist and primary care providers previously expected into complete the full course of antibiotics at home. He was initially managed for sepsis with fluid bolus and antibiotics, though his sofa score is only 1 based on a mild elevation of creatinine, so sepsis is ruled out at the time of discharge. Time Spent with Patient Time spent: Greater than 30 minutes Exam Vital Signs (past 8 hours): - 09/03/21 05:04 09/03/21 08:00 Temperature 100.5 F H 97.3 F L Pulse Rate 91 H Respiratory Rate 18 Blood Pressure 127/75 Pulse Oximetry 95 Oxygen Flow Rate 0 Oxygen Delivery Method Room Air Oxygen Flow Rate 0 Narrative Exam Narrative: Pleasant male lying in bed Resp Other: Lungs clear to auscultation Cardio Other: Cardiac exam: Regular rate and rhythm normal S1-S2 GI Other: Abdomen: Soft nontender nondistended Extrem Other: Extremities: No edema Objective Labs Result Diagrams: 09/03/21 04:45 09/03/21 04:45 Labs: Laboratory Results - last 24 hr 09/02/21 09/03/21 09/03/21 05:55 04:45 04:45 WBC 7.9 RBC 3.65 L Hgb 11.4 L Hct 33.0 L MCV 90.5 MCH 31.1 MCHC 34.4 RDW 13.4 Plt Count 134 L Neut % (Auto) 81.3 H Lymph % (Auto) 8.5 L [place] % (Auto) 8.4 Eos % (Auto) 1.3 L Baso % (Auto) 0.5 Neut # (Auto) 6400 Lymph # (Auto) 700 L [place] # (Auto) 700 Eos # (Auto) 100 Baso # (Auto) 0 Sodium 136 L Potassium 3.6 Chloride 106 Carbon Dioxide 25 BUN 8 L Creatinine 1.14 Estimated GFR > 60 BUN/Creatinine Ratio 7.0 Glucose 151 H Calcium 8.8 Procalcitonin 5.96 H 09/03/21 04:45 WBC RBC Hgb Hct MCV MCH MCHC RDW Plt Count Neut % (Auto) Lymph % (Auto) [place] % (Auto) Eos % (Auto) Baso % (Auto) Neut # (Auto) Lymph # (Auto) [place] # (Auto) Eos # (Auto) Baso # (Auto) Sodium Potassium Chloride Carbon Dioxide BUN Creatinine Estimated GFR BUN/Creatinine Ratio Glucose Calcium Procalcitonin 4.29 H [facility] Medical History Essential hypertension Social History household members: spouse Smoking Status: Never smoker Discharge Plan Discharge Plan Patient Disposition: Home Provider Discharge Comment: You were admitted to the hospital with bacteria in your bloodstream after a prostate biopsy. Please complete full course of antibiotics at home. We will call if there needs to be a change in your antibiotics based on the blood culture results. Discharge orders & Medications Prescriptions: New cefdinir 300 mg capsule 300 mg PO BID 10 Days Qty: 20 0RF Continued amlodipine 10 mg tablet 10 mg PO DAILY Label Comments: TAKE 1 TABLET BY MOUTH ONCE DAILY hydrochlorothiazide 12.5 mg capsule 12.5 mg PO DAILY Label Comments: TAKE 1 CAPSULE BY MOUTH DAILY omeprazole 20 mg capsule,delayed release(DR/EC) 20 mg PO PRN PRN (Reason: Heartburn) irbesartan 300 mg tablet 300 mg PO DAILY Label Comments: TAKE 1 TABLET BY MOUTH DAILY Follow up/Referrals: Doctor Tucker MD [Primary Care Provider] - Diet/Activity/Treatments Diet: Diet as Tolerated Activity: As tolerated Discharge Data Primary Care Provider: Doctor Caitlin
--- NOTE | 2021-09-03 12:21 | CM.DPC ---
Discharge Planning Note: Patient is discharging home soon with transporting. No issues. Jasmyne Craft RN/DCP
== END 2021-09-03 12:33 | disposition home or self-care (01) | DRG 863 ==
LOC: ED 22:11 → AC 22:12
PROVIDERS: Internal Medicine; Admitting Provider Family Medicine; Emergency Provider Emergency Medicine; Referring Provider Emergency Medicine; Visit Provider Family Medicine
DX: T81.40XA Infection following a procedure, unspecified, initial encounter (principal); R78.81 Bacteremia; N39.0 Urinary tract infection, site not specified; B96.20 Unspecified Escherichia coli [E. coli] as the cause of diseases classified elsewhere; I95.9 Hypotension, unspecified; K21.9 Gastro-esophageal reflux disease without esophagitis; I10 Essential (primary) hypertension; Z20.822 Contact with and (suspected) exposure to COVID-19
CPT/HCPCS: 36415; 71045; 80048; 80053; 81001; 83605; 84145; 85025; 87040; 87077; 87086; 87150; 87186; 87633; 96365; 99284; J0696; J0744; J1885

== ENCOUNTER 2023-01-13 11:50 | Emergency (ER) | payer OTHER, SELFPAY ==
[2021-09-01 22:37] VITALS: BMI 25.5
[2023-01-13 11:52] VITALS: BP 144/77; RESP 16; TEMP 36.9; O2SAT 99; BMI 25.4
--- NOTE | 2023-01-13 12:15 | ED_ITS ---
HPI - Fall <Migue Owens PA-C - Last Filed: 01/13/23 13:07> General Chief Complaint: Fall Stated Complaint: FELL/HEAD LAC/INJURY Time Seen by Provider: 01/13/23 12:05 Source: patient Mode of arrival: Ambulatory History of Present Illness HPI Narrative: This is a 62-year-old male presents emergency department due to a scalp laceration he states that he tripped and fallen over his dog bite last night in the his head on the coffee table. He states he is not take blood thinners but does take a daily baby aspirin. He denies any loss of consciousness, significant head pain, neck pain, nausea, vomiting, dizziness, slurred speech, or any other concerning signs or symptoms. No other injuries to the remainder of his body. Related Data Home Medications Medication Instructions Recorded Confirmed amlodipine 10 mg tablet 10 mg PO DAILY 09/01/21 09/01/21 hydrochlorothiazide 12.5 mg capsule 12.5 mg PO DAILY 09/01/21 09/01/21 irbesartan 300 mg tablet 300 mg PO DAILY 09/01/21 09/01/21 omeprazole 20 mg capsule,delayed 20 mg PO PRN PRN Heartburn 09/01/21 09/01/21 release Previous Rx's Medication Instructions Recorded bacitracin 500 unit/gram topical 1 applic topical DAILY #14 grams 01/13/23 ointment Allergies Allergy/AdvReac Type Severity Reaction Status Date / Time Penicillins [PENICILLINS] Allergy Intermediate itching Verified 09/01/21 20:56 Review of Systems <Migue Owens PA-C - Last Filed: 01/13/23 13:07> Review of Systems Narrative: GENERAL: Denies chills, fatigue, malaise, fever, sweats. HEENT: Denies sinus pain, ear pain, sore throat, difficulty swallowing, dizziness. RESPIRATORY: Denies dyspnea, cough, wheezing, hemoptysis, sputum. CARDIOVASCULAR: Denies chest pain, palpitations, orthopnea, edema, GASTROINTESTINAL: Denies nausea, vomiting, abdominal pain, diarrhea, constipation, melena. : Denies dysuria, frequency, incontinence, hematuria, urinary retention. MUSCULOSKELETAL: denies weakness, joint pain, or bony pain SKIN: Scalp laceration NEUROLOGIC: Denies weakness, headache, numbness, change in speech, confusion, seizures, incoordination. PSYCHIATRIC: No concerning psychosocial issues. 12 point review of systems is negative except for those stated above Patient History <Migue Owens PA-C - Last Filed: 01/13/23 13:07> Medical History Essential hypertension Social History household members: spouse Smoking Status: Never smoker Smoking Status: Never smoker alcohol intake frequency: 0-2 drinks per day Alcohol type: wine and hard liquor Substance Use Type: does not use Exam <Migue Owens PA-C - Last Filed: 01/13/23 13:07> Narrative Exam Narrative: GENERAL: Well-developed patient, in mild distress. HEAD: Atraumatic. Normocephalic. EYES: Pupils equal round and reactive. Extraocular motions intact. No scleral icterus. No injection or drainage. ENT: Nose without bleeding, purulent drainage. Throat without erythema, tonsillar hypertrophy or exudate. Airway patent. NECK: Trachea midline. Non tender CARDIOVASCULAR: Regular rate and rhythm without murmurs, gallops, or rubs. RESPIRATORY: Clear to auscultation. Breath sounds equal bilaterally. No wheezes, rales, or rhonchi. GASTROINTESTINAL: Abdomen soft, non-tender, nondistended. EXTREMITIES: No edema or joint tenderness. BACK: Nontender without deformity or crepitance. No flank tenderness. NEURO: AOx3. Cranial nerves 2-12 intact. SKIN: Approximately 5 cm laceration to the scalp. No active bleeding. No surrounding bony crepitus. Bald. Initial Vital Signs Initial Vital Signs: Vital Signs Temperature 98.4 F 01/13/23 11:52 Respiratory Rate 16 01/13/23 11:52 Blood Pressure 144/77 H 01/13/23 11:52 Pulse Oximetry 99 01/13/23 11:52 Oxygen Delivery Method Room Air 01/13/23 11:52 <Elsy Johnson DO - Last Filed: 01/13/23 17:58> Initial Vital Signs Initial Vital Signs: Vital Signs Temperature 98.4 F 01/13/23 11:52 Respiratory Rate 16 01/13/23 11:52 Blood Pressure 144/77 H 01/13/23 11:52 Pulse Oximetry 99 01/13/23 11:52 Oxygen Delivery Method Room Air 01/13/23 11:52 Procedures <Migue Owens PA-C - Last Filed: 01/13/23 13:07> Laceration Repair Laceration 1: Time of procedure: 13:04 Site: scalp Size (cm): 5 Description: linear Depth: simple, single layer Local Anesthetic: lidocaine 2% and with epi Amount of anesthesia used (mL): 5 Pre-repair: irrigated extensively Skin layer closed with: nylon Skin layer suture size: 4-0 Number of sutures: 7 Technique: simple, interrupted Course <Migue Owens PA-C - Last Filed: 01/13/23 13:07> Vital Signs Vital signs: Vital Signs - 8 hr 01/13/23 11:52 01/13/23 13:03 Temperature 98.4 F 97.8 F Pulse Rate 77 Respiratory Rate 16 16 Blood Pressure 144/77 H 138/78 Pulse Oximetry 99 97 Oxygen Delivery Method Room Air Room Air <Elsy Johnson DO - Last Filed: 01/13/23 17:58> Vital Signs Vital signs: Vital Signs - 8 hr 01/13/23 11:52 01/13/23 13:03 Temperature 98.4 F 97.8 F Pulse Rate 77 Respiratory Rate 16 16 Blood Pressure 144/77 H 138/78 Pulse Oximetry 99 97 Oxygen Delivery Method Room Air Room Air MDM - Fall <Migue Owens PA-C Last Filed: 01/13/23 13:07> MDM Narrative Medical decision making narrative: MDM * differential diagnosis includes but not limited to scalp laceration, cranial fracture, intracranial bleed, concussion, cervical spine injury * Prior records reviewed: Patient was seen here year ago due to fever of unknown origin. * My lab interpretation: None obtained * My imgaing interpretation: None obtained * Clinical Decision Rules/Scores evaluated: As below * Independent discussions with: None ED Course: This is a 62-year-old male presents emergency department after tripping and falling and hitting his scalp on a coffee table undergoing a laceration. This laceration was closed without complications. Shared decision- making was utilized and no CT scan ordered. [place] CT head injury utilized with score of [address] recommended. Patient was not having any symptoms concerning for any kind of intracranial bleed. Laceration was closed without complications and the patient was instructed to follow up with the primary care provider. For suture removal. Shared Decision Making: Discussed plan with patient who is comfortable with the plan. Social Considerations: None Disposition: Discharged to home. Discharge Plan Departure Patient Disposition: Home Clinical Impression: Laceration Activity Restrictions/Additional Instructions: Thank you for coming to the [facility] Emergency Department today. Please follow up with the primary care provider or walk-in clinic in 7-10 days for suture removal. I have sent an antibiotic ointment to the pharmacy. Please keep an eye for any redness or drainage or any other signs of infection. You may likely cover the laceration with gauze if needed if there is any kind of bloody drainage. I hope you feel better soon. Please follow up with your primary care provider within a week if your symptoms continue. If you do not have a primary care provider please contact the [facility] Resource line at [phone]. They will ask some questions about your medical history and help you get set up with a provider in the community. Prescriptions: New bacitracin 500 unit/gram ointment 1 applic topical DAILY Qty: 14 0RF No Action amlodipine 10 mg tablet 10 mg PO DAILY Patient Comments: TAKE 1 TABLET BY MOUTH ONCE DAILY hydrochlorothiazide 12.5 mg capsule 12.5 mg PO DAILY Patient Comments: TAKE 1 CAPSULE BY MOUTH DAILY omeprazole 20 mg capsule,delayed release(DR/EC) 20 mg PO PRN PRN (Reason: Heartburn) irbesartan 300 mg tablet 300 mg PO DAILY Patient Comments: TAKE 1 TABLET BY MOUTH DAILY Referrals: Miscellaneous,Doctor, [Primary Care Provider] - Stand Alone Forms: Patient Portal/API ED Sign-out <Elsy Johnson, - Last Filed: 01/13/23 17:58> Cosign ED Attending Bhavesh Attestation: I was immediately available in the department for consultation. Documentation has been reviewed.
[2023-01-13 13:03] VITALS: BP 138/78; PULSE 77; RESP 16; TEMP 36.6; O2SAT 97
== END 2023-01-13 13:04 | disposition home or self-care (01) ==
PROVIDERS: Emergency Provider Physician Assistant Medical
DX: S01.01XA Laceration without foreign body of scalp, initial encounter (principal); W01.0XXA Fall on same level from slipping, tripping and stumbling without subsequent striking against object, initial encounter
CPT/HCPCS: 12002; 99281; 99283

== ENCOUNTER → 2024-03-06 09:42 | Outpatient (CLI) | payer MEDICARE, OTHER, SELFPAY ==
[2021-09-01 22:37] VITALS: BMI 25.5
--- NOTE | 2024-03-06 09:43 | DI.RAD.S_ITS ---
PROCEDURE: XR FOOT RT MIN 3V INDICATIONS: TTP lateral aspect of foot, pain with walking, no known inj TECHNIQUE: 3 views of the foot were acquired. COMPARISON: None. FINDINGS: No acute fracture or dislocation. Mild hallux valgus without significant lateralization of the hallux sesamoids. Mild 1st MTP osteoarthritis. The joint spaces are preserved. Mild Achilles calcaneal enthesopathy. IMPRESSION: No acute fracture dislocation of the right foot. Dictated by: Tobi Turner M.D. on 03/06/2024 at 12:21 Approved by: Tobi Turner M.D. on 03/06/2024 at 12:22
== END ==
PROVIDERS: Referring Provider Nurse Practitioner Family; Visit Provider Nurse Practitioner Family
DX: M20.11 Hallux valgus (acquired), right foot (principal); M19.071 Primary osteoarthritis, right ankle and foot; M79.671 Pain in right foot; M77.31 Calcaneal spur, right foot
CPT/HCPCS: 73630

== ENCOUNTER → 2024-03-06 10:14 | Outpatient (CLI) | payer MEDICARE, OTHER, SELFPAY ==
[2021-09-01 22:37] VITALS: BMI 25.5
--- NOTE | 2024-03-06 10:15 | DI.US.S_ITS ---
PROCEDURE: US PERIPH VENOUS LOW EXTREM RT INDICATIONS: Lower extremity pain and swelling. r/o DVT TECHNIQUE: Real-time imaging, as well as color and pulse Doppler interrogation, were performed of the lower extremity deep veins from the inguinal ligament to the popliteal fossa, with documentation of the visualized calf veins. COMPARISON: None. FINDINGS: The common femoral, femoral, popliteal, and the visualized calf veins are normally compressible, and free of intraluminal thrombus. Color and pulse Doppler demonstrate normal phasic intraluminal flow. There is normal augmentation response to distal compression maneuver. IMPRESSION: No evidence of deep vein thrombosis involving the right lower extremity. Dictated by: Nadege Christianson MD, PhD on 03/06/2024 at 11:05 Approved by: Nadege Christianson MD, PhD on 03/06/2024 at 11:06
== END ==
PROVIDERS: Referring Provider Nurse Practitioner Family; Visit Provider Nurse Practitioner Family
DX: M79.89 Other specified soft tissue disorders (principal); M20.11 Hallux valgus (acquired), right foot; M19.071 Primary osteoarthritis, right ankle and foot; M79.671 Pain in right foot; M77.31 Calcaneal spur, right foot
CPT/HCPCS: 73630; 93971

== ENCOUNTER → 2024-08-16 11:43 | Outpatient (CLI) | payer MEDICARE, OTHER, SELFPAY ==
[2021-09-01 22:37] VITALS: BMI 25.5
--- NOTE | 2024-08-16 11:46 | DI.CT.S_ITS ---
PROCEDURE: CT LUNG LOW DOSE SCREENING INDICATIONS: hx of tobacco use TECHNIQUE: Noncontrast 2.0-2.5 mm thick sections acquired from the pulmonary apices to the posterior costophrenic angles. 7 mm thick axial MIP, and 5 mm coronal and sagittal reformats were then acquired. For radiation dose reduction, the following was used: automated exposure control, adjustment of mA and/or kV according to patient size. COMPARISON: Outside Facility, CT, CT LUNG LOW DOSE SCREENING, 10/02/2022, 9:10. Outside Facility, CT, CT LUNG LOW DOSE SCREENING, 10/10/2023, 9:56. FINDINGS: Image quality: Diagnostic. Lower Neck: No enlarged lymph nodes. Thyroid: No thyroid nodules which require sonographic follow up, per consensus guidelines. Axillae: No enlarged lymph nodes. Chest Wall: Unremarkable. Bones: Unremarkable. Lungs and Pleura: No pneumothorax or pleural effusions. No consolidations. Punctate granulomas, unchanged. Heart: Heart size is normal. No pericardial effusion. Thoracic Vessels: The aorta and pulmonary arteries demonstrate normal size. Mediastinum and Melissa: No enlarged lymph nodes. Esophagus: No wall thickening. No hiatal hernia. Upper Abdomen: Visualized upper abdomen solid organs and bowel loops appear normal. IMPRESSION: No suspicious pulmonary nodules. Punctate granulomas, unchanged. LUNG-RADS 2; continued annual screening, if eligible. Clinically Significant Non-pulmonary Findings: None. Dictated by: Rowena Antunez M.D. on 08/19/2024 at 11:48 Approved by: Rowena Antunez M.D. on 08/19/2024 at 11:51
== END ==
PROVIDERS: Referring Provider Family Medicine; Visit Provider Family Medicine
DX: Z12.2 Encounter for screening for malignant neoplasm of respiratory organs (principal); Z87.891 Personal history of nicotine dependence
CPT/HCPCS: 71271

== ENCOUNTER → 2024-09-29 14:26 | Outpatient (ROUT) | payer MEDICARE, OTHER, SELFPAY ==
[2021-09-01 22:37] VITALS: BMI 25.5
== END ==
DX: L73.9 Follicular disorder, unspecified (principal)
CPT/HCPCS: 87070; 87075; 87147; 87205

== ENCOUNTER → 2024-12-10 08:44 | Outpatient (CLI) | payer MEDICARE, OTHER, SELFPAY ==
[2021-09-01 22:37] VITALS: BMI 25.5
[2024-12-10 10:28] LABS: Prostate Specific Antigen 0.200 ng/mL (0.10-4.00)
[2024-12-21 09:09] LABS: Percent Free Testosterone 2.83 % (1.50-4.20)
== END ==
PROVIDERS: Referring Provider Physician Assistant; Visit Provider Physician Assistant
DX: Z85.46 Personal history of malignant neoplasm of prostate (principal)
CPT/HCPCS: 36415; 84153; 84402; 84403